=== PATIENT | female | born 1940 | race Hispanic/Latino ===

== ENCOUNTER 2016-12-04 12:49 | Outpatient (CLI) | payer MEDICARE, BC ==
--- NOTE | 2016-12-04 15:02 | CT ---
CT BRAIN WITHOUT CONTRAST: Comparison: 04-11-14 History: Visual disturbance. Technique: Multiple contiguous axial images were obtained in a CT of the brain without contrast. FINDINGS: There are scattered hypodensities in the subcortical and periventricular white matter, likely second walker to small vessel ischemic disease. No large confluent infarction is seen. There is no evidence of hydrocephalus, intracranial hemorrhage, or extraaxial fluid collections. The calvarium and overlying soft tissues are unremarkable. The visualized paranasal sinuses and mast oid air cells are well aerated. IMPRESSION: Small vessel ischemic disease without acute intracranial abnormality. POS: [facility]
== END 2016-12-04 12:50 | disposition home or self-care (01) ==
LOC: CT 12:49
PROVIDERS: ATTEND Specialist
DX: R51 Headache (principal); H53.8 Other visual disturbances; G93.89 Other specified disorders of brain
CPT/HCPCS: 70450

== ENCOUNTER 2018-02-01 10:00 | Emergency (ER) | payer MEDICARE, BC ==
[2018-02-01] MEDS ORDERED: Iopamidol 370 76% 100 ML VIAL ONE (10:27)
[2018-02-01 10:39] LABS: #Basophils 0.1 thou/uL (0.0-0.2); #Eosinphils 0.4 thou/uL (0.0-0.7); #Lymphocytes 4.3 thou/uL (1.20-3.40); #Monocytes 0.9 thou/uL (0.11-0.59); #Neutrophils 5.7 thou/uL (1.40-6.50); %Basophils 0.9 % (0.0-1.0); %Eosinophils 3.6 % (0.0-10.0); %Lymphocytes 38.1 % (21.0-51.0); %Monocytes 7.6 % (0.0-10.0); %Neutrophils 49.8 % (42.0-75.0); Hemoglobin 12.7 g/dL (12.0-16.0); Mean Corpuscular HGB CONC 33.1 g/dL (32.0-36.0); Mean Corpuscular Hemoglobin 31.4 pg (27.0-31.0); Mean Corpuscular Volume 94.9 fL (78.0-98.0); Mean Platelet Volume 7.5 fL (7.4-10.4); Platelet Count 299 thou/uL (130-400); RBC Distribution Width 13.3 % (11.5-14.5); Red Blood Cell (RBC) Count 4.05 mill/uL (4.20-5.40); White Blood Cell (WBC) Count 11.4 thou/uL (4.8-10.8)
[2018-02-01 10:43] LABS: Bilirubin Negative (Negative); Blood, Urine Moderate (Negative); Clarity TURBID (Clear); Glucose, Urine (Dipstick) >=1000 mg/dL (Negative); Leukocyte Large (Negative); Nitrite Negative (Negative); Protein, Urine (Dipstick) Trace mg/dL (Neg-Trace); Specific Gravity, Urine 1.019 (1.002-1.036)
--- NOTE | 2018-02-01 10:45 | RAD ---
CHEST 1 VIEW: HISTORY: Chest pain. COMPARISON: Radiograph 08/15/2016. FINDINGS: Heart size is mildly enlarged. Mild edema. NO pneumothorax. Small right effusion. IMPRESSION: Cardiomegaly, mild edema, and small right effusion. POS: [facility]
[2018-02-01 10:49] LABS: Bacteria/HPF 4+ HPF (None Seen); Yeast-AUWi Flag 8.5 (0-25.0)
[2018-02-01 10:52] LABS: Pathc Cast-AUWi Flag 13.92 (0-2.49)
[2018-02-01 11:01] LABS: Hyaline Casts/LPF 0-3 HYALINE CAST LPF (0-3 Hyaline); Manual Microscopic Reviewed? No Path Casts Seen
[2018-02-01 11:03] LABS: ALT (SGPT) 9 U/L (8-55); AST (SGOT) 16 U/L (5-34); Albumin 4.3 g/dL (3.4-4.8); Alkaline Phosphatase 106 U/L (40-150); Anion Gap 19 mmol/L (10-20); BUN (Urea Nitrogen) 17 mg/dL (9.8-20.1); Bilirubin, Total 0.3 mg/dL (0.2-1.2); CK (CPK) 39 U/L (29-168); Calc. Creatinine Clearance 0 mL/min (70-130); Carbon Dioxide 21 mmol/L (23-31); Chloride 101 mmol/L (98-107); Estimated GFR-MDRD 61; Globulin 3.9 g/dL (2.4-3.5); Glucose 217 mg/dL (83-110); Potassium 4.4 mmol/L (3.5-5.1); Protein, Total 8.2 g/dL (6.0-8.3); Sodium 137 mmol/L (136-145)
[2018-02-01 11:07] LABS: CKMB 0.5 ng/mL (0-6.6); Troponin I Less than 0.010 ng/mL (< 0.028)
--- NOTE | 2018-02-01 12:01 | CT ---
CT ANGIOGRAM CHEST WITH CONTRAST: HISTORY: Chest pain. COMPARISON: Radiograph of same day. FINDINGS: CT angiogram chest performed after the intravenous administration of contrast. Three-D rendering was provided. The exam is limited due to the delayed phase of contrast. No proximal segmental pulmonary arterial f illing defect. Heart size is enlarged. Pulmonary trunk size measures 28 mm. No mediastinal adenopathy. There is mild pulmonary edema. Trace right pleural effusion. Bronchiectasis is present also in the left lower lobe with some mucus filling the left lower lobe bro nchi. The sternum and manubrium are intact. No acute thoracic spine fracture. There is no acute displaced rib fracture. IMPRESSION: 1. No proximal segmental pulmonary arterial filling defect. 2. Cardiomegaly and mild pulmonary edema. 3. Trace right effusion. POS: [facility]
== END 2018-02-01 14:24 | disposition home or self-care (01) ==
LOC: ERS 10:00
DX: R07.89 Other chest pain (principal); N39.0 Urinary tract infection, site not specified; I10 Essential (primary) hypertension; E66.9 Obesity, unspecified; E11.319 Type 2 diabetes mellitus with unspecified diabetic retinopathy without macular edema; E78.00 Pure hypercholesterolemia, unspecified; K21.9 Gastro-esophageal reflux disease without esophagitis; F32.9 Major depressive disorder, single episode, unspecified; Z79.899 Other long term (current) drug therapy
CPT/HCPCS: 36415; 51701; 71045; 71275; 80053; 81003; 81015; 82553; 83880; 84484; 85025; 87040; 87086; 93005; 94760; 96365; A4353; J1956

== ENCOUNTER 2018-10-22 21:10 | Inpatient (IN) | payer MEDICARE, BC, MEDICAID ==
[2018-10-22 21:54] LABS: #Basophils 0.1 thou/uL (0.0-0.2); #Eosinphils 0.5 thou/uL (0.0-0.7); #Lymphocytes 2.1 thou/uL (1.20-3.40); #Neutrophils 4.3 thou/uL (1.40-6.50); %Basophils 0.8 % (0.0-1.0); %Eosinophils 5.8 % (0.0-10.0); %Lymphocytes 26.8 % (21.0-51.0); %Monocytes 12.2 % (0.0-10.0); %Neutrophils 54.4 % (42.0-75.0); Hemoglobin 11.8 g/dL (12.0-16.0); Mean Corpuscular Hemoglobin 31.8 pg (27.0-31.0); Mean Corpuscular Volume 96.3 fL (78.0-98.0); Mean Platelet Volume 7.5 fL (7.4-10.4); Platelet Count 255 thou/uL (130-400); RBC Distribution Width 13.1 % (11.5-14.5); Red Blood Cell (RBC) Count 3.72 mill/uL (4.20-5.40)
--- NOTE | 2018-10-22 21:56 | RAD ---
XR Chest 1 View Portable HISTORY: Altered mental status. COMPARISON: 02/01/2018 exam. FINDINGS: Heart size is enlarged with chronic appearing lung changes seen. No focal infiltrates or si gns of failure. IMPRESSION: Cardiomegaly with chronic appearing lung change. Stable chest.
[2018-10-22] MEDS ORDERED: Vancomycin HCl 1 GM in Premix Bag 1 BAG IVPB SCH (22:00)
[2018-10-22] MEDS ORDERED: MEROPENEM 1 GM/50 ML 1 GM in Premix Bag 1 BAG IVPB SCH (22:15)
[2018-10-22 22:16] LABS: ALT (SGPT) 22 U/L (8-55); AST (SGOT) 31 U/L (5-34); Albumin 3.8 g/dL (3.4-4.8); Alkaline Phosphatase 131 U/L (40-150); Anion Gap 17 mmol/L (10-20); BUN (Urea Nitrogen) 40 mg/dL (9.8-20.1); Bilirubin, Total 0.3 mg/dL (0.2-1.2); Calc. Creatinine Clearance 0 mL/min (70-130); Calcium 9.4 mg/dL (7.8-10.44); Carbon Dioxide 22 mmol/L (23-31); Chloride 98 mmol/L (98-107); Estimated GFR-MDRD 15; Globulin 3.6 g/dL (2.4-3.5); Glucose 96 mg/dL (83-110); Protein, Total 7.4 g/dL (6.0-8.3); Sodium 133 mmol/L (136-145)
[2018-10-22] MEDS ORDERED: Norepinephrine 4 MG/4 ML VIAL ONE (22:31)
[2018-10-22] MEDS ORDERED: Dextrose 50% Abboject 50 ML SYRINGE ONE (22:31)
[2018-10-22] MEDS ORDERED: Norepinephrine 8 MG in Dextrose 5% in Water 242 ML IVPB PRN (22:36)
--- NOTE | 2018-10-22 23:31 | RAD ---
Portable chest: HISTORY: Central line placement. COMPARISON: Earlier exam of the same day. A left-sided central line is been placed. Catheter tip overlies the superior vena cava. There is no s igns of pneumothorax. No other interval change is noted. IMPRESSION: Placement of a central line, the catheter tip overlies the superior vena cava. No signs o f pneumothorax.
[2018-10-23 00:09] LABS: Bacteria/HPF 4+ HPF (None Seen); Bilirubin Negative (Negative); Blood, Urine 1+ (Negative); Clarity Extra Turbid (Clear); Glucose, Urine (Dipstick) 300 mg/dL (Negative); Leukocyte 500 Leu/uL (Negative); Nitrite Negative (Negative); Protein, Urine (Dipstick) 100 mg/dL (Neg-Trace); Squamous Epithelial 21-50 HPF (0-3); Urobilinogen Normal mg/dL (Less than 2); WBC/HPF Greater than 50 HPF (0-3)
[2018-10-23] MEDS ORDERED: Dextrose 10% in Water 1,000 ML IV SCH (01:30)
[2018-10-23 01:48] VITALS: BMI 33.5
[2018-10-23 01:52] LABS: Lactic Acid 3.1 mmol/L (0.5-2.2)
[2018-10-23] MEDS ORDERED: hydrALAZINE 20 MG/ML VIAL SLOW IVP PRN (02:37)
[2018-10-23] MEDS ORDERED: Sodium Chloride 0.9% 1,000 ML IV SCH (02:37)
[2018-10-23] MEDS ORDERED: Dextrose 50% Abboject 50 ML SYRINGE SLOW IVP PRN (02:37)
[2018-10-23] MEDS ORDERED: Acetaminophen 500 MG TAB PO PRN (02:37)
[2018-10-23] MEDS ORDERED: HumaLOG 300 UNITS/3 ML VIAL SC PRN ×2 (02:37)
[2018-10-23] MEDS ORDERED: Dextrose 5% in Water 1,000 ML IV PRN (02:37)
[2018-10-23] MEDS ORDERED: Norepinephrine 8 MG/0.9% NS 250 ML IVPB SCH (02:37)
[2018-10-23] MEDS ORDERED: Ondansetron PF 4 MG/2 ML Vial IVP PRN (02:37)
[2018-10-23] MEDS ORDERED: Ondansetron ODT 4 MG TAB PO PRN (02:37)
[2018-10-23] MEDS ORDERED: Norepinephrine 8 MG in Dextrose 5% in Water 242 ML IVPB SCH (03:00)
[2018-10-23] MEDS: cefTRIAXone\\ROCEPHIN 2 GM in Sodium Chloride 0.9% 100 ML IVPB SCH (03:48)
[2018-10-23 04:54] LABS: Band 11 % (5-11); Eosinophils 3 % (0-10); Hemoglobin 11.2 g/dL (12.0-16.0); Lymphocytes 23 % (21-51); MDiff Complete? YES; Mean Corpuscular HGB CONC 33.5 g/dL (32.0-36.0); Mean Corpuscular Volume 95.5 fL (78.0-98.0); Mean Platelet Volume 7.2 fL (7.4-10.4); Monocytes 8 % (0-10); Neutrophil 55 % (42-75); Platelet Count 255 thou/uL (130-400); Red Blood Cell (RBC) Count 3.51 mill/uL (4.20-5.40); White Blood Cell (WBC) Count 8.2 thou/uL (4.8-10.8)
[2018-10-23 05:00] LABS: Anion Gap 14 mmol/L (10-20); BUN (Urea Nitrogen) 35 mg/dL (9.8-20.1); Calc. Creatinine Clearance 27 mL/min (70-130); Calcium 8.6 mg/dL (7.8-10.44); Carbon Dioxide 22 mmol/L (23-31); Chloride 101 mmol/L (98-107); Estimated GFR-MDRD 22; Glucose 176 mg/dL (83-110); Potassium 3.9 mmol/L (3.5-5.1); Sodium 133 mmol/L (136-145)
[2018-10-23] MEDS ORDERED: Vancomycin HCl 1 GM in Sodium Chloride 0.9% 250 ML 250 ML IVPB SCH (09:00)
--- NOTE | 2018-10-23 09:09 | HP ---
PRIMARY CARE PROVIDER: Dr. Lyle Sands. CHIEF COMPLAINT: Hypoglycemia and altered mental status. HISTORY OF PRESENT ILLNESS: This is a 78-year-old female, who is a current resident at [facility] where the patient was discovered with altered mental status and unresponsive by [facility] staff. Initial glucose was noted 34 at which point patient received glucose at the [facility]. The patient with longstanding history of diabetes mellitus type 2, on oral hypoglycemics including glyburide/metformin and Januvia. The patient apparently had been recently treated for suspected urinary tract infection with antibiotic therapy over the last 5-7 days prior to this evaluation. In the emergency room, the patient underwent general evaluation, receiving IV vancomycin and meropenem in addition to initiation of vasopressors with Levophed. The patient also received D50 IV push with 10% dextrose. PAST MEDICAL HISTORY: 1. Hypertension. 2. Diabetes mellitus type 2. 3. Morbid obesity. 4. Recurrent cystitis. 5. Distal right femur fracture. PAST SURGICAL HISTORY: 1. Status post hysterectomy. 2. Status post cholecystectomy. 3. Status post open reduction and internal fixation right femur fracture. CURRENT MEDICATIONS: 1. Invokana 300 mg p.o. daily. 2. Abilify 10 mg p.o. daily. 3. Claritin 5 mg p.o. daily. 4. Januvia 100 mg p.o. daily. 5. Zocor 10 mg p.o. at bedtime. 6. Wellbutrin XL 1 tablet p.o. daily. 7. Protonix 40 mg p.o. daily. 8. Tylenol 325 mg 2 tablets p.o. q.6 hours p.r.n. 9. Lasix 20 mg p.o. daily. 10. Gabapentin 300 mg p.o. daily. 11. NovoLog 70/30, 42 units subcutaneously. 12. Tramadol 50 mg p.o. q.6 hours p.r.n. pain. ALLERGIES: TO CLARITHROMYCIN, PENICILLIN. FAMILY HISTORY: Positive for diabetes mellitus type 2 and hypertension. SOCIAL HISTORY: Current resident of [facility]. Resides in [place], [place] previously. No alcohol, tobacco, or illicit drug use. Quit smoking greater than 20 years prior to this evaluation. REVIEW OF SYSTEMS: GENERAL: Unobtainable due to patient's altered mental status and poor historian. VITAL SIGNS: On admission, blood pressure 75/45, pulse 75, respiratory rate 18, temperature 97.8 degrees Fahrenheit, O2 saturation is 98% on room air. GENERAL APPEARANCE: This is a 78-year-old female, lying on the hospital bed, sleeping, arouses to name in no acute distress. HEENT: Pupils are equal, round, reactive to light and accommodation. Extraocular muscles are intact. No scleral icterus. No conjunctival injection. Nares are patent. OP is clear. NECK: Supple. No cervical adenopathy. No thyromegaly. No carotid bruits. No JVD appreciated. Cervical spine with full active and passive range of motion. No meningeal signs noted. CHEST: Diminished breath sounds in the bases bilaterally. CARDIOVASCULAR: S1 and S2 without noted murmur, rub, or gallop. ABDOMEN: Rounded, soft, nontender, and nondistended. Bowel sounds are positive in all 4 quadrants. There is no hepatosplenomegaly. No abdominal bruits, no rebound or guarding appreciated. EXTREMITIES: Warm and dry with fair turgor. No clubbing, cyanosis, or asymmetric edema appreciated. Pulses palpable distally at the dorsalis pedis, posterior tibial, and popliteal arteries bilaterally. Capillary refill less than 2 seconds. NEUROLOGIC: Somnolent and lethargic throughout the exam. Does not follow commands. Rest of the cranial nerves 2 through 12 are grossly intact. PERTINENT LAB AND X-RAY FINDINGS: Sodium 133, potassium 4.0, chloride 98, CO2 of 22, BUN 40, creatinine 3.09. Lactic acid level 2.6. Glucose ranged between 41 to 103. LFTs within normal limits. CBC showed a white blood cell count of 8.0, hemoglobin 12, hematocrit 36, platelet count 255 with normal differential. Urinalysis positive for protein, blood and leukocyte esterase positive, 11 to 20 rbc's per high-power field and greater than 50 to [id number]-count wbc's per high-power field. 4+ bacteria noted. Portable chest x-ray dated 10/22/2018, no acute cardiopulmonary process noted. Telemetry monitoring shows a sinus rhythm with heart rates in the 80s to the low 90s. ASSESSMENT/PLAN: 1. Sepsis with shock. The patient will be admitted to Critical Care Unit. We will continue IV antibiotic therapy, empirically treating, suspected urinary tract infection. Continue Rocephin 2 g IV q.24 hours with additional vancomycin 1 g IV q.12 hours. Await final urine and blood culture results. 2. Acute kidney injury, suspect multifactorial. Continue intravenous normal saline and monitor clinical response. 3. Hypoglycemia. Suspect iatrogenic in conjunction with #1. Continue D10 infusion and monitor serial creatinine. 4. Hypotension, suspect secondary to #1. Continue vasopressor support and monitor serial blood pressures. 5. Diabetes mellitus type 2. Hold all oral hypoglycemics and monitor serial glucose. 6. Prophylaxis. SCDs while in bed. Pepcid 20 mg IV b.i.d. PT and OT evaluation for functional assessment. CODE STATUS: Full. Surrogate medical decision maker is patient's daughter. Job ID: [id number]
[2018-10-23] MEDS ORDERED: Dextrose 5 % And 0.9 % NaCl 1,000 ML IV SCH (11:45)
[2018-10-23] MEDS: Sodium Chloride 0.9% 1,000 ML IV SCH ×2 (14:00→19:13)
--- NOTE | 2018-10-23 16:05 | PDOC.HOSPP ---
- Subjective Encounter Date: 10/23/18 Encounter Time: 10:00 Subjective: Ms. Ferrer was seen today in follow-up of UTI with sepsis. She does not have any complaints. She says she is feeling much better. - Objective Vital Signs & Weight: Vital Signs (12 hours) Temp Pulse BP Pulse Ox Pulse Ox 10/23/18 11:00 98.7 F 10/23/18 07:56 83 101/48 L 99 10/23/18 07:33 97 10/23/18 07:00 98.3 F Weight Admit Weight 171 lb 11.841 oz Weight 171 lb 11.841 oz Most Recent Monitor Data Heart Rate from ECG 79 NIBP 96/55 NIBP BP-Mean 68 Respiration from ECG 19 SpO2 97 I&O: 10/22/18 10/23/18 10/24/18 06:59 06:59 06:59 Intake Total 523 1698 Output Total 1300 1999 Balance -777 -302 Result Diagrams: 10/23/18 04:00 10/23/18 04:00 Additional Labs: Accuchecks 10/23/18 10/23/18 10/23/18 15:55 12:39 10:38 POC Glucose 302 H 225 H 192 H 10/23/18 10/23/18 10/23/18 08:20 06:10 04:07 POC Glucose 192 H 154 H 171 H 10/22/18 10/22/18 10/22/18 23:47 22:38 22:03 POC Glucose 164 H 41 L* 60 L 10/22/18 21:17 POC Glucose 103 ROS - Medication Medications: Active Medications Generic Name Dose Route Start Last Admin Trade Name Freq PRN Reason Stop Dose Admin Ceftriaxone Sodium 2 gm/ 100 mls @ 200 mls/hr 10/23/18 03:00 10/23/18 03:48 Sodium Chloride IVPB 100 mls Q24HR BRIANNE Administration Sodium Chloride 1,000 mls @ 0 mls/hr 10/23/18 02:37 10/23/18 12:18 Normal Saline 0.9% IV 10/24/18 02:38 1,000 mls .Q0M BRIANNE Administration As Directed Dextrose/Sodium Chloride 1,000 mls @ 50 mls/hr 10/23/18 11:45 10/23/18 12:20 D5 0.9% Ns IV 1,000 mls .Q20H BRIANNE Administration Sodium Chloride 1,000 mls @ 125 mls/hr 10/23/18 11:45 10/23/18 14:00 Normal Saline 0.9% IV 1,000 mls .Q8H BRIANNE Administration - Exam Eye: PERRL, anicteric sclera Heart: RRR, no murmur, no gallops, no rubs, normal peripheral pulses Respiratory: CTAB, no wheezes, no rales, no ronchi, normal chest expansion, no tachypnea, normal percussion Gastrointestinal: soft, non-tender, non-distended, normal bowel sounds, no palpable masses, no hepatomegaly, no splenomegaly Extremities: no cyanosis, no clubbing, no edema Hosp A/P (1) Sepsis Code(s): A41.9 - SEPSIS, UNSPECIFIED ORGANISM Status: Acute (2) UTI (urinary tract infection) Status: Acute Qualifiers: Hematuria presence: without hematuria (3) DM2 (diabetes mellitus, type 2) Status: Chronic Qualifiers: Diabetes mellitus complication status: without complication Qualified Code( s): E11.9 - Type 2 diabetes mellitus without complications (4) HTN (hypertension) Code(s): I10 - ESSENTIAL (PRIMARY) HYPERTENSION Status: Chronic Qualifiers: Hypertension type: essential hypertension Qualified Code(s): I10 - Essential (primary) hypertension (5) Septic shock Code(s): A41.9 - SEPSIS, UNSPECIFIED ORGANISM; R65.21 - SEVERE SEPSIS WITH SEPTIC SHOCK Status: Acute - Plan * UTI with septic shock- she has been weaned off pressors, and can begin to gissel IV fluids * Continue Rocephin * DM- her blood glucose is beginning to creep up- will discontinue D5NS * She can eb transferred out of the ICU * She is typically wheeclchair bound at the nursing facility, and anticipate return when she is clinically improved
[2018-10-23] MEDS ORDERED: Guaifenesin DM 100-10/5 ML UDCUP PO SCH (20:00)
[2018-10-23] MEDS ORDERED: Vancomycin HCl 1 GM in Premix Bag 1 BAG IVPB SCH (23:00)
[2018-10-24] MEDS: cefTRIAXone\\ROCEPHIN 2 GM in Sodium Chloride 0.9% 100 ML IVPB SCH (02:40)
[2018-10-24] MEDS: Sodium Chloride 0.9% 1,000 ML IV SCH (02:42)
[2018-10-24 05:37] LABS: Anion Gap 12 mmol/L (10-20); BUN (Urea Nitrogen) 16 mg/dL (9.8-20.1); Calc. Creatinine Clearance 77 mL/min (70-130); Calcium 8.6 mg/dL (7.8-10.44); Carbon Dioxide 23 mmol/L (23-31); Chloride 111 mmol/L (98-107); Estimated GFR-MDRD 75; Glucose 136 mg/dL (83-110); Potassium 3.5 mmol/L (3.5-5.1); Sodium 142 mmol/L (136-145)
--- NOTE | 2018-10-24 07:49 | PDOC.HOSPP ---
- Subjective Encounter Date: 10/24/18 Encounter Time: 07:46 Subjective: Ms. Ferrer was seen today in follow-up of UTI and sepsis. She does not have any complaints today. She appears comfortable. - Objective Vital Signs & Weight: Vital Signs (12 hours) Temp Pulse Resp BP Pulse Ox 10/24/18 04:39 98.5 F 84 16 134/68 95 10/24/18 00:20 98.3 F 81 16 127/62 98 10/23/18 19:58 97.9 F 86 16 125/58 L 93 L Weight Admit Weight 171 lb 11.841 oz Weight 171 lb 11.841 oz Most Recent Monitor Data Heart Rate from ECG 80 NIBP 96/55 NIBP BP-Mean 68 Respiration from ECG 20 SpO2 98 I&O: 10/23/18 10/24/18 10/25/18 06:59 06:59 06:59 Intake Total 523 3589 Output Total 1300 3500 Balance -777 89 Result Diagrams: 10/23/18 04:00 10/24/18 03:30 Additional Labs: Accuchecks 10/23/18 10/23/18 10/23/18 20:11 15:55 12:39 POC Glucose 223 H 302 H 225 H 10/23/18 10/23/18 10:38 08:20 POC Glucose 192 H 192 H ROS - Medication Medications: Active Medications Generic Name Dose Route Start Last Admin Trade Name Freq PRN Reason Stop Dose Admin Ceftriaxone Sodium 2 gm/ 100 mls @ 200 mls/hr 10/23/18 03:00 10/24/18 02:40 Sodium Chloride IVPB 100 mls Q24HR BRIANNE Administration - Exam Eye: PERRL, anicteric sclera Heart: RRR, no murmur, no gallops, no rubs, normal peripheral pulses Respiratory: CTAB, no wheezes, no rales, no ronchi, normal chest expansion, no tachypnea, normal percussion Gastrointestinal: soft, non-tender, non-distended, normal bowel sounds, no palpable masses, no hepatomegaly, no splenomegaly Extremities: no cyanosis, no clubbing, no edema Hosp A/P (1) Sepsis Code(s): A41.9 - SEPSIS, UNSPECIFIED ORGANISM Status: Acute (2) UTI (urinary tract infection) Status: Acute Qualifiers: Hematuria presence: without hematuria (3) DM2 (diabetes mellitus, type 2) Status: Chronic Qualifiers: Diabetes mellitus complication status: without complication Qualified Code( s): E11.9 - Type 2 diabetes mellitus without complications (4) HTN (hypertension) Code(s): I10 - ESSENTIAL (PRIMARY) HYPERTENSION Status: Chronic Qualifiers: Hypertension type: essential hypertension Qualified Code(s): I10 - Essential (primary) hypertension (5) Septic shock Code(s): A41.9 - SEPSIS, UNSPECIFIED ORGANISM; R65.21 - SEVERE SEPSIS WITH SEPTIC SHOCK Status: Acute - Plan * UTI with septic shock- this is much improved. Urine culture results are pending * Continue Rocephin * DM- will re-start some of her home medications for DM- but will hold off on insulin * HTN- blood pressure is stable- will continue to hold her MARIO-I today, likely re-start tomorrow * Likely back to the [facility] in 1-2 days
[2018-10-24] MEDS: Bupropion 150 MG XL TAB PO SCH (08:43)
[2018-10-24] MEDS: metFORMIN 500 MG TAB PO SCH ×2 (08:43→17:00)
[2018-10-24] MEDS: Gabapentin 300 MG CAP PO SCH ×3 (08:43→20:17)
[2018-10-24] MEDS: traMADol HCl 50 MG TAB PO SCH ×2 (08:43→20:17)
[2018-10-24] MEDS: Alogliptin 6.25 MG TAB PO SCH ×2 (08:44→17:00)
[2018-10-24] MEDS ORDERED: Guaifenesin DM 100-10/5 ML UDCUP PO PRN (08:45)
[2018-10-24] MEDS ORDERED: DULoxetine 60 MG CAP PO SCH (21:00)
[2018-10-24] MEDS ORDERED: Aripiprazole 10 MG TAB PO SCH (21:00)
[2018-10-24] MEDS ORDERED: Simvastatin 5 MG TAB PO SCH (21:00)
[2018-10-25] MEDS: cefTRIAXone\\ROCEPHIN 2 GM in Sodium Chloride 0.9% 100 ML IVPB SCH (03:12)
[2018-10-25] MEDS: Bupropion 150 MG XL TAB PO SCH (08:42)
[2018-10-25] MEDS: traMADol HCl 50 MG TAB PO SCH (08:43)
[2018-10-25] MEDS: Gabapentin 300 MG CAP PO SCH ×2 (08:43→16:59)
[2018-10-25] MEDS: metFORMIN 500 MG TAB PO SCH ×2 (08:43→16:59)
[2018-10-25] MEDS: Alogliptin 6.25 MG TAB PO SCH ×2 (08:44→16:59)
[2018-10-25 08:49] VITALS: BP 130/59; TEMP 97.9
--- NOTE | 2018-10-25 13:37 | PDOC.HOSPP ---
- Subjective Encounter Date: 10/25/18 Encounter Time: 13:34 Subjective: Ms. Ferrer was seen today in follow-up of UTI with sepsis. She appears at her baseline. She does not have any complaints. - Objective Vital Signs & Weight: Vital Signs (12 hours) Temp Pulse Resp BP Pulse Ox 10/25/18 08:00 97.9 F 89 16 130/59 L 95 Weight Admit Weight 171 lb 11.841 oz Weight 171 lb 11.841 oz Most Recent Monitor Data Heart Rate from ECG 80 NIBP 96/55 NIBP BP-Mean 68 Respiration from ECG 20 SpO2 98 I&O: 10/24/18 10/25/18 10/26/18 06:59 06:59 06:59 Intake Total 3589 Output Total 3500 Balance 89 Result Diagrams: 10/23/18 04:00 10/24/18 03:30 Additional Labs: Accuchecks 10/25/18 10/25/18 10/24/18 11:06 06:40 20:45 POC Glucose 207 H 157 H 142 H 10/24/18 16:32 POC Glucose 147 H ROS - Medication Medications: Active Medications Generic Name Dose Route Start Last Admin Trade Name Freq PRN Reason Stop Dose Admin Acetaminophen 1,000 mg 10/23/18 02:37 10/25/18 08:45 Tylenol PO 1,000 mg Q6H PRN Administration Mild Pain (1-3) Alogliptin Benzoate 12.5 mg 10/24/18 08:00 10/25/18 08:44 Alogliptin PO 12.5 mg BID-WM BRIANNE Administration Aripiprazole 10 mg 10/24/18 21:00 10/24/18 20:20 Abilify PO 10 mg HS BRIANNE Administration Bupropion HCl 300 mg 10/24/18 09:00 10/25/18 08:42 Wellbutrin Xl PO 300 mg DAILY BRIANNE Administration Duloxetine HCl 120 mg 10/24/18 21:00 10/24/18 20:17 Cymbalta PO 120 mg HS BRIANNE Administration Gabapentin 300 mg 10/24/18 09:00 10/25/18 08:43 Neurontin PO 300 mg TID BRIANNE Administration Guaifenesin/Dextromethorphan 15 ml 10/24/18 08:45 10/24/18 09:05 Robitussin Dm PO 15 ml Q4H PRN Administration Cough Ceftriaxone Sodium 2 gm/ 100 mls @ 200 mls/hr 10/23/18 03:00 10/25/18 03:12 Sodium Chloride IVPB 100 mls Q24HR BRIANNE Administration Metformin HCl 1,000 mg 10/24/18 08:00 10/25/18 08:43 Glucophage PO 1,000 mg BID-WM BRIANNE Administration Simvastatin 10 mg 10/24/18 21:00 10/24/18 20:17 Zocor PO 10 mg HS BRIANNE Administration Tramadol HCl 50 mg 10/24/18 09:00 10/25/18 08:43 Ultram PO 50 mg BID BRIANNE Administration - Exam Eye: PERRL, anicteric sclera Heart: RRR, no murmur, no gallops, no rubs, normal peripheral pulses Respiratory: CTAB, no wheezes, no rales, no ronchi, normal chest expansion Gastrointestinal: soft, non-distended, normal bowel sounds, no palpable masses, no hepatomegaly, no splenomegaly Extremities: no cyanosis, no clubbing, no edema Hosp A/P (1) Sepsis Code(s): A41.9 - SEPSIS, UNSPECIFIED ORGANISM Status: Acute (2) UTI (urinary tract infection) Status: Acute Qualifiers: Hematuria presence: without hematuria (3) DM2 (diabetes mellitus, type 2) Status: Chronic Qualifiers: Diabetes mellitus complication status: without complication Qualified Code( s): E11.9 - Type 2 diabetes mellitus without complications (4) HTN (hypertension) Code(s): I10 - ESSENTIAL (PRIMARY) HYPERTENSION Status: Chronic Qualifiers: Hypertension type: essential hypertension Qualified Code(s): I10 - Essential (primary) hypertension (5) Septic shock Code(s): A41.9 - SEPSIS, UNSPECIFIED ORGANISM; R65.21 - SEVERE SEPSIS WITH SEPTIC SHOCK Status: Acute - Plan * UTI with septic shock- resolved * Canchange antibiotic to Omnicef * DM- stable * HTN- blood pressure is stable- re-start Lisinopril * Stable to return to half-way
--- NOTE | 2018-10-25 21:57 | DIS ---
DATE OF ADMISSION: 10/22/2018 DATE OF DISCHARGE: 10/25/2018 PRIMARY CARE PHYSICIAN: Dr. Lyle Sands. DISCHARGE DISPOSITION: Back to the [facility]. DISCHARGE DIAGNOSES: 1. Urinary tract infection with sepsis. 2. Hypoglycemia. 3. Metabolic encephalopathy secondary to hypoglycemia. 4. Obesity. 5. Diabetes mellitus. 6. Hypertension. DISCHARGE MEDICATIONS: 1. Omnicef 300 mg twice daily. 2. Tramadol 50 mg twice a day. 3. Janumet mg twice daily. 4. Simvastatin 10 mg at bedtime. 5. MiraLAX 17 g daily. 6. Protonix 40 mg daily. 7. Zofran 4 mg q.6 as needed. 8. Losartan 50 mg at bedtime. 9. Claritin 5 mg daily. 10. Insulin 70/30, 44 units in the morning, 42 in the evening. 11. Gabapentin 300 mg t.i.d. 12. Lasix 20 mg twice a day. 13. Cymbalta 120 mg at bedtime. 14. Colace 100 mg 2 tablets daily. 15. Invokana 300 mg daily. 16. Wellbutrin 300 mg daily. 17. Abilify 10 mg daily. 18. Tylenol 325 mg daily. CODE STATUS: Full code. ALLERGIES: CLARITHROMYCIN AND PENICILLIN G. HOSPITAL COURSE: Ms. Nabil Menendez is a pleasant 78-year-old female, who was admitted due to hypoglycemia and altered mental status. She was found to have a urinary tract infection as well as sepsis and septic shock. She was admitted initially to the ICU. She had to be placed on IV fluids as well as pressors. Urine culture unfortunately did not grow any organisms, but she did improve with Rocephin IV and after she was fluid resuscitated and her blood pressure stabilized, she was moved out of the ICU to the Medical [facility], where she remained stable. We were able to begin to reintroduce her medications for diabetes and also able to begin to transition her back on her blood pressure medicine. She did well again as previously stated on Rocephin. Antibiotic was switched to Omnicef and she was discharged back to the nursing facility. Job ID: [id number]
== END 2018-10-25 17:00 | DRG 871 ==
LOC: ERS 21:10 → CCU 23:25 → ONC 10-23 16:21
PROVIDERS: ADMIT Family Medicine; ATTEND Family Medicine
DX: A41.9 Sepsis, unspecified organism (principal); G93.41 Metabolic encephalopathy; R65.21 Severe sepsis with septic shock; N17.9 Acute kidney failure, unspecified; I10 Essential (primary) hypertension; E66.01 Morbid (severe) obesity due to excess calories; E11.649 Type 2 diabetes mellitus with hypoglycemia without coma; Z90.49 Acquired absence of other specified parts of digestive tract; Z90.710 Acquired absence of both cervix and uterus; Z79.899 Other long term (current) drug therapy; Z88.0 Allergy status to penicillin; Z68.33 Body mass index [BMI] 33.0-33.9, adult
CPT/HCPCS: 36415; 36416; 71045; 80048; 80053; 80202; 81003; 81015; 82533; 83605; 84484; 85007; 85025; 85027; 87040; 87086; 93005; A4353; J0696; J2185; J3370; J3490; J7070

== ENCOUNTER 2018-11-24 08:33 | Inpatient (IN) | payer MEDICARE, BC, MEDICAID ==
[2018-11-24] MEDS ORDERED: Acetaminophen 650 MG Suppository ONE (09:02)
[2018-11-24 09:07] LABS: Hemoglobin 14.1 g/dL (12.0-16.0); Mean Corpuscular HGB CONC 33.5 g/dL (32.0-36.0); Mean Corpuscular Volume 92.4 fL (78.0-98.0); Mean Platelet Volume 8.1 fL (7.4-10.4); Platelet Count 254 thou/uL (130-400); RBC Distribution Width 13.6 % (11.5-14.5); Red Blood Cell (RBC) Count 4.55 mill/uL (4.20-5.40); White Blood Cell (WBC) Count 18.6 thou/uL (4.8-10.8)
--- NOTE | 2018-11-24 09:11 | RAD ---
PORTABLE CHEST: HISTORY: Respiratory infection two weeks ago, just finished Levaquin. COMPARISON: Examination from 10/22/2018. FINDINGS: Heart size is enlarged. Perihilar and upper lobe markings appear slightly increased with slightly mo re prominent changes of the right upper lobe. All these changes appear stable as compared to the ariana or exam. IMPRESSION: Overall stable lung parenchymal changes. POS: [facility]
[2018-11-24 09:19] LABS: Bilirubin Negative (Negative); Blood, Urine Negative (Negative); Clarity Turbid (Clear); Glucose, Urine (Dipstick) Greater than 1000 mg/dL (Negative); Leukocyte 500 Leu/uL (Negative); Nitrite Negative (Negative); Protein, Urine (Dipstick) Negative (Neg-Trace); RBC/HPF 0-3 HPF (0-3); Squamous Epithelial None Seen HPF (0-3); Urobilinogen Normal mg/dL (Less than 2); WBC/HPF Greater than 50 HPF (0-3)
[2018-11-24 09:21] LABS: Bacteria/HPF 3+ HPF (None Seen)
[2018-11-24 09:25] LABS: Band 6 % (5-11); Lymphocytes 15 % (21-51); MDiff Complete? YES; Monocytes 10 % (0-10); Neutrophil 69 % (42-75); RBC Morphology Normal
[2018-11-24 09:46] LABS: ALT (SGPT) 8 U/L (8-55); AST (SGOT) 14 U/L (5-34); Albumin 4.2 g/dL (3.4-4.8); Alkaline Phosphatase 98 U/L (40-150); Anion Gap 16 mmol/L (10-20); BUN (Urea Nitrogen) 16 mg/dL (9.8-20.1); Bilirubin, Total 0.6 mg/dL (0.2-1.2); Calc. Creatinine Clearance 0 mL/min (70-130); Calcium 9.4 mg/dL (7.8-10.44); Carbon Dioxide 25 mmol/L (23-31); Chloride 101 mmol/L (98-107); Estimated GFR-MDRD 62; Globulin 3.2 g/dL (2.4-3.5); Glucose 185 mg/dL (83-110); Lipase 12 U/L (8-78); Potassium 3.8 mmol/L (3.5-5.1); Protein, Total 7.4 g/dL (6.0-8.3); Sodium 138 mmol/L (136-145)
[2018-11-24] MEDS ORDERED: cefTRIAXone\\ROCEPHIN 1 GM VIAL ONE (10:02)
[2018-11-24] MEDS ORDERED: Acetaminophen 325 MG TAB PO PRN (12:10)
[2018-11-24] MEDS ORDERED: Ondansetron ODT 4 MG TAB SL PRN (12:10)
[2018-11-24] MEDS ORDERED: Ondansetron PF 4 MG/2 ML Vial IVP PRN (12:10)
[2018-11-24] MEDS ORDERED: Dextrose 50% Abboject 50 ML SYRINGE SLOW IVP PRN (13:16)
[2018-11-24] MEDS ORDERED: HumaLOG 300 UNITS/3 ML VIAL SC PRN (13:16)
[2018-11-24] MEDS ORDERED: Dextrose 5% in Water 1,000 ML IV PRN (13:16)
[2018-11-24] MEDS ORDERED: Norepinephrine 8 MG in Dextrose 5% in Water 242 ML IVPB PRN (13:24)
[2018-11-24] MEDS ORDERED: Norepinephrine 8 MG/0.9% NS 250 ML IVPB SCH (13:30)
[2018-11-24 13:31] VITALS: BMI 31.1
[2018-11-24] MEDS ORDERED: Meropenem 1 GM in Sodium Chloride 0.9% 100 ML IVPB SCH (14:00)
[2018-11-24] MEDS ORDERED: Sodium Chloride 0.9% 1,000 ML IV SCH (14:45)
[2018-11-24] MEDS ORDERED: Albumin 25% 25 GM/100 ML BOT IVPB SCH (14:45)
[2018-11-24] MEDS: Sodium Chloride 0.9% 1,000 ML IV SCH (14:57)
[2018-11-24] MEDS: MEROPENEM 1 GM/50 ML 1 GM in Premix Bag 1 BAG IVPB SCH ×2 (14:58→23:10)
[2018-11-24] MEDS: HumuLIN 70/30 (300 UNITS/3 ML VIAL) SC SCH (16:16)
--- NOTE | 2018-11-24 16:37 | HP ---
PRIMARY CARE PHYSICIAN: Lyle Sands MD CHIEF COMPLAINT/REASON FOR ADMISSION: The patient transferred to the emergency department from [facility] due to alteration in mental status. HISTORY OF PRESENT ILLNESS: Ms. Ferrer is a 78-year-old female, familiar to this facility from recent admission 10/22/2018 through 10/25/2018, at that time, diagnosed with urinary tract infection with consequent sepsis, requiring central line placement and pressor support, manifesting with clinical evidence of hypoglycemia and metabolic encephalopathy. At baseline, medical comorbidities include essential hypertension, type 2 diabetes, morbid obesity, previous history of recurrent cystitis, and previous history of distal right femur fracture. Additionally, the patient has a history of chronic constipation, anxiety disorder, and dyslipidemia. She presents on this occasion after becoming confused, worsened compared to baseline, with evidence of fever. She was also noted to have oxygen saturation of 89% on room air per EMS transition report. Her daughter had noted some of her mom's speech content was off relative to baseline, and endorsed confusion. Of note, upon ER presentation, temperature 101.8 rectally. Noted to have tachycardia with a pulse of 111. Clinically, felt to be hypovolemic, received IV fluid bolus x2 in the emergency department. Evaluation subsequently revealed evidence of recurrent urinary infection, request made for admission for antibiotic therapy and additional fluids. The patient's surrogate medical decision maker is her daughter, who is present at the bedside. We discussed her mother's care, also discussed code status, confirmed wish for do not resuscitate. This has been added to her chart. They are open to pursuing central line placement and pressor support if needed. Per daughter, the patient did recognize them in the ER, seemed to perk up with IV fluids, and even eat a mechanical soft lunch, which is her baseline diet. However, after transfer to the medical floor, noted to have hypotension, which has been persistent despite fluids, blood pressures 70s to 80s systolic. Upon arrival to medical floor, I was notified by her bedside nurse of interval hypotension. I evaluated the patient, trial of additional fluids unsuccessful, subsequently transferred to ICU. PAST MEDICAL HISTORY: 1. Type 2 diabetes. 2. Anxiety disorder. 3. Chronic constipation. 4. Gastroesophageal reflux disease. 5. History of recurrent cystitis. 6. Morbid obesity. 7. Essential hypertension. 8. Dyslipidemia. PAST SURGICAL HISTORY: 1. Cholecystectomy. 2. Hysterectomy. 3. Open reduction and internal fixation of right femur fracture. CURRENT MEDICATIONS: Per ER/halfway notes: 1. Cymbalta 180 mg p.o. at bedtime. 2. Losartan 50 mg p.o. at bedtime. 3. Docusate 100 mg p.o. twice daily. 4. MiraLAX 17 g p.o. daily. 5. Zocor 10 mg p.o. at bedtime. 6. Wellbutrin XL 300 mg p.o. once daily. 7. Protonix 40mg p.o. once daily. 8. Lasix 20 mg p.o. twice daily. 9. Abilify 10 mg p.o. once daily. 10. Invokana 300 mg p.o. once daily. 11. Gabapentin 300 mg p.o. three times daily. 12. Tramadol 50 mg p.o. twice daily p.r.n. pain. 13. Humulin 70/30, 20 units subcutaneously twice daily. 14. Zofran oral disintegrating tablet 4 mg p.o. q.6 hours p.r.n. nausea. 15. Janumet one tablet p.o. twice daily. ALLERGIES: BACTRIM, CLARITHROMYCIN, AND PENICILLIN. EXACT REACTION IS NOT KNOWN. FAMILY HISTORY: Positive for type 2 diabetes as well as hypertension in second-degree relatives. SOCIAL HISTORY: She is a resident of [facility]. No alcohol use or illicit drug use. Formally used tobacco, discontinued over 20 years ago. REVIEW OF SYSTEMS: Review of systems is limited secondary to the patient's alteration in mental status. As reviewed with her surrogate medical decision maker and with ER staff, no significant additional history available in review of systems. PHYSICAL EXAMINATION: VITAL SIGNS: ER triage vital signs; blood pressure 113/59, heart rate 111, respiratory rate 25, temperature 101.8 rectally, and saturating 94% on room air. Blood pressure on the medical floor 77/50. GENERAL: This is a frail, elderly female, presently in Trendelenburg at the time of my evaluation on the medical floor. She has periods of somnolence, interspersed with periods of wakefulness. She is Kitt[place]-speaking and responds better in her k[place] language. Eyes are without conjunctival injection or scleral icterus. Oropharynx, mucous membranes are moist. NECK: Supple. Full range of motion. HEART: Regular rate and rhythm. LUNGS: Some transmitted upper airway noise, cough reflex noted to be somewhat weak. She has some intermittent labored breathing present. ABDOMEN: Soft, nontender, and nondistended. EXTREMITIES: Without clubbing/cyanosis/edema. NEUROLOGIC: She is able to follow commands. She is able to tell me her daughter's name as well as her son-in-law. She is not oriented to time, location, or situation; however, she does move all extremities bilaterally to command. LABORATORY/DATA REVIEW: Previous records reviewed. Lab evaluation, urinalysis abnormal with evidence of glucose, ketones, 500 leukocyte esterase, greater than 50 white blood cells, 3+ bacteria. Chemistry panel reviewed. Glucose 185, lactic acid 2.0. Troponin negative. Liver function tests unremarkable. White blood cell count elevated at 18.6, hemoglobin 14, hematocrit 42, platelet count is 254. She has 6% bands. Chest x-ray personally reviewed. Mild bilateral interstitial markings are present. These appear stable compared to her chest x-ray, from October. Mild enlargement of her heart size is present. Radiology report indicating perihilar and upper lobe markings appear slightly increased, more prominent in the right upper lobe. Those changes were felt to be similar compared to prior exam. IMPRESSION: 1. Sepsis, as evidenced by leukocytosis, temperature 101.8, pulse 111, lactic acid 2.0, present on admission, suspect recurrent urinary source versus worsened right upper lobe infiltrate with evidence of shock, with hypotension despite fluid resuscitation. 2. Type 2 diabetes, insulin dependent. 3. Alteration in mental status, secondary to underlying infection/sepsis ( compatible with metabolic encephalopathy) 4. Obesity. 5. Essential hypertension. 6. History of anxiety/depression. PLAN/RECOMMENDATIONS: 1. Pulmonary - some transmitted upper airway noise, with some reported cough/congestion, treated empirically with antibiotics to cover potential urine and pulmonary sources. Oxygen as needed to maintain saturations greater than 90%. 2. Infectious Disease - placed on empiric coverage with vancomycin and meropenem. She has a history of an allergy to penicillin. Previous hospital stay was on Rocephin, we will rotate antibiotics slightly for the possibility of interval development of resistance in the urine. Of note, urine culture on last hospitalization did not grow. 3. Endocrine - placed on insulin sliding scale coverage. The nursing facility is on 70/30, 20 units subcutaneously twice daily. For the time being, we will place on 20 units subcutaneously twice daily, but adjust should as needed. Hold Janumet, reassess. 4. DVT prophylaxis - Lovenox. 5. Cardiology - continue home simvastatin. 6. Discussed with the patient and her family the natural history of recurrent infection in the elderly. With infections become more frequent over time, typically indicates worsened deconditioning and overall performance status. Her daughter is certainly aware. I also explained that this patient has a high risk of deterioration, and thus, if not with this infection, but with subsequent infections due to her previous performance status. Code status is do not attempt resuscitation. They are open to a trial of pressors as well as placement of central line, this is familiar to them from her last hospital stay. Condition is guarded. Spiritual care consult discussed, requested. Job ID: [id number] MTDD
[2018-11-24] MEDS: Atorvastatin Calcium 10 MG TAB PO SCH (20:21)
[2018-11-24] MEDS: Aripiprazole 10 MG TAB PO SCH (20:22)
[2018-11-24] MEDS: Vancomycin HCl 1 GM in Premix Bag 1 BAG IVPB SCH (20:23)
[2018-11-24] MEDS: DULoxetine 60 MG CAP PO SCH (20:27)
[2018-11-24] MEDS ORDERED: Vancomycin HCl 1 GM in Premix Bag 1 BAG IVPB SCH (21:00)
--- NOTE | 2018-11-24 22:15 | CON ---
DATE OF CONSULTATION: 11/24/2018 HISTORY OF PRESENT ILLNESS: Ms. Nabil Menendez is a 78-year-old female who lives in a full-time care environment. She has moved to the critical care unit because of hypotension. She apparently presented from the custodial to the emergency department with hypotension. She was just hospitalized little less than a month ago. She is unable to give a history. She was nonverbal when she was admitted to the unit. PAST MEDICAL HISTORY: Remarkable for 1. Recent admission for hypoglycemia. 2. Diabetes. 3. Hypertension. 4. Recurrent cystitis. 5. History of a distal right femur fracture. 6. Status post hysterectomy. 7. Status post cholecystectomy. 8. Status post ORIF, right femur. SOCIAL HISTORY: Nonsmoker and nondrinker. MEDICATIONS: Have been reviewed. FAMILY HISTORY: Negative for lung disease in early age. REVIEW OF SYSTEMS: 10 point review of systems completed, otherwise negative. PHYSICAL EXAMINATION: GENERAL: janice Menendez is a 78-year-old female. VITAL SIGNS: She arrived in the ICU. Her blood pressure is 105 systolic. Another liter of saline has been ordered again with 25 g of salt-poor albumin. HEENT: Pupils are reactive, sclerae are anicteric. NECK: Supple. LUNGS: Clear anteriorly. HEART: Regular rhythm. ABDOMEN: Soft and nontender without guarding or masses. EXTREMITIES: Without clubbing, cyanosis, or edema. LABORATORY DATA: White count 18.6, hemoglobin 14.1, platelets 254. Sodium 138, potassium 3.8, chloride 101, bicarb 25, BUN 16, creatinine 0.89, glucose 185. Blood gas is not done. Urinalysis showed greater than 50 white blood cells per high- power field. Urine culture was pending when I called the Lab. IMPRESSION AND PLAN: Hypotension in part secondary to intravascular volume depletion. Early urinary tract sepsis is certainly a possibility as well. We will be happy to follow the other physicians caring for her, but she appears to be stabilizing. TIME SPENT: This is a 70-minute consult, 50% of time spent on the unit coordinating care. Job ID: [id number] MTDD
[2018-11-25 05:20] LABS: #Eosinphils 0.3 thou/uL (0.0-0.7); #Monocytes 0.7 thou/uL (0.11-0.59); #Neutrophils 7.3 thou/uL (1.40-6.50); %Basophils 0.2 % (0.0-1.0); %Eosinophils 2.8 % (0.0-10.0); %Lymphocytes 19.3 % (21.0-51.0); %Monocytes 7.1 % (0.0-10.0); %Neutrophils 70.7 % (42.0-75.0); Hemoglobin 11.6 g/dL (12.0-16.0); Mean Corpuscular HGB CONC 32.4 g/dL (32.0-36.0); Mean Corpuscular Hemoglobin 31.3 pg (27.0-31.0); Mean Corpuscular Volume 96.8 fL (78.0-98.0); Mean Platelet Volume 7.4 fL (7.4-10.4); Platelet Count 196 thou/uL (130-400); RBC Distribution Width 13.2 % (11.5-14.5); White Blood Cell (WBC) Count 10.3 thou/uL (4.8-10.8)
[2018-11-25 05:32] LABS: Anion Gap 11 mmol/L (10-20); BUN (Urea Nitrogen) 8 mg/dL (9.8-20.1); Calc. Creatinine Clearance 83 mL/min (70-130); Calcium 8.9 mg/dL (7.8-10.44); Carbon Dioxide 21 mmol/L (23-31); Chloride 109 mmol/L (98-107); Estimated GFR-MDRD 82; Glucose 113 mg/dL (83-110); Potassium 3.3 mmol/L (3.5-5.1); Sodium 138 mmol/L (136-145)
[2018-11-25] MEDS: Sodium Chloride 0.9% 1,000 ML IV SCH (06:18)
[2018-11-25] MEDS: MEROPENEM 1 GM/50 ML 1 GM in Premix Bag 1 BAG IVPB SCH ×3 (06:39→21:41)
[2018-11-25] MEDS: Bupropion 150 MG XL TAB PO SCH ×3 (07:44→09:32)
[2018-11-25] MEDS: Vancomycin HCl 1 GM in Premix Bag 1 BAG IVPB SCH (07:44)
[2018-11-25] MEDS: Docusate 100 MG CAP PO SCH ×3 (07:44→09:32)
[2018-11-25] MEDS: Enoxaparin Sodium 40 MG/0.4 ML SYRINGE SC SCH (07:45)
[2018-11-25] MEDS: HumuLIN 70/30 (300 UNITS/3 ML VIAL) SC SCH ×3 (07:48→16:27)
[2018-11-25] MEDS ORDERED: Prevnar 13-Val Conj/PF 0.5 ML SYRINGE IM ONE (09:00)
--- NOTE | 2018-11-25 15:28 | PRG ---
DATE OF SERVICE: 11/25/2018 SUBJECTIVE: Ms. Nabil Menendez today is much more alert. She is speaking [place]e, but not making much sense. OBJECTIVE: VITAL SIGNS: Remain stable. She is afebrile. Heart rate is 101, respiratory rate is in the teens, oximetry is 98% on room air, blood pressure 141/87. LUNGS: Clear. HEART: Regular rhythm. ABDOMEN: Soft and nontender. EXTREMITIES: Without edema. LABORATORY DATA: Urine is growing a gram-negative jayce. IMPRESSION: Cystitis and possible early urinary tract sepsis. She is clinically stable. She has been adequately hydrated. I suspect a large component of her hypotension is secondary to intravascular volume depletion. She is stable to move out of the Critical Care Unit in my opinion. Antibiotics can be de-escalated when sensitivities are back. We will sign off. Job ID: [id number]
--- NOTE | 2018-11-25 17:30 | PDOC.HOSPP ---
- Subjective Encounter Date: 11/25/18 Encounter Time: 10:15 Subjective: Ms. Nabil Menendez was seen today in follow-up of UTI with sepsis. She is confused, she notes a headache and some body aches, but otherwise ok. - Objective Vital Signs & Weight: Vital Signs (12 hours) Temp Pulse Resp BP Pulse Ox 11/25/18 16:47 98.3 F 98 18 125/80 93 L 11/25/18 11:00 98.4 F 101 H 18 141/87 H 98 11/25/18 07:06 99 11/25/18 06:58 98.9 F Weight Weight 170 lb Most Recent Monitor Data Heart Rate from ECG 99 NIBP 140/103 NIBP BP-Mean 115 Respiration from ECG 19 SpO2 97 I&O: 11/24/18 11/25/18 11/26/18 06:59 06:59 06:59 Intake Total 2727 0 Output Total 3200 950 Balance -473 -950 Result Diagrams: 11/25/18 04:48 11/25/18 04:47 Additional Labs: Accuchecks 11/25/18 11/25/18 11/25/18 16:26 11:27 06:13 POC Glucose 104 116 H 121 H 11/24/18 11/24/18 20:44 12:26 POC Glucose 60 L 186 H Hospitalist ROS - Medication Medications: Active Medications Generic Name Dose Route Start Last Admin Trade Name Freq PRN Reason Stop Dose Admin Aripiprazole 10 mg 11/24/18 21:00 11/24/18 20:22 Abilify PO 10 mg HS BRIANNE Administration Atorvastatin Calcium 5 mg 11/24/18 21:00 11/24/18 20:21 Lipitor PO 5 mg HS BRIANNE Administration Bupropion HCl 300 mg 11/25/18 09:00 11/25/18 09:32 Wellbutrin Xl PO 300 mg QAM BRIANNE Administration Dextrose/Water 25 gm 11/24/18 13:16 11/24/18 20:49 Dextrose 50% SLOW IVP 25 gm PRN PRN Administration Hypoglycemia Docusate Sodium 200 mg 11/25/18 09:00 11/25/18 09:32 Colace PO 200 mg DAILY BRIANNE Administration Duloxetine HCl 120 mg 11/24/18 21:00 11/24/18 20:27 Cymbalta PO 120 mg HS BRIANNE Administration Enoxaparin Sodium 40 mg 11/25/18 09:00 11/25/18 07:45 Lovenox SC 40 mg 0900 BRIANNE Administration Meropenem 1 gm/ Device 50 mls @ 200 mls/hr 11/24/18 14:00 11/25/18 14:56 IVPB 50 mls Q8HR BRIANNE Administration Insulin Human Isoph/Insulin Regular 20 units 11/24/18 16:30 11/25/18 16:27 Humulin 70/30 SC Not Given BID-AC BRIANNE Pantoprazole Sodium 40 mg 11/25/18 09:00 11/25/18 09:32 Protonix PO 40 mg DAILY BRIANNE Administration - Exam Eye: PERRL, anicteric sclera Heart: RRR, no murmur, no gallops, no rubs, normal peripheral pulses Respiratory: CTAB, no wheezes, no rales, no ronchi, normal chest expansion, no tachypnea, normal percussion Gastrointestinal: soft, non-tender, non-distended, normal bowel sounds, no palpable masses, no hepatomegaly, no splenomegaly, no bruit Hosp A/P (1) UTI (urinary tract infection) Status: Acute Qualifiers: Hematuria presence: without hematuria (2) Sepsis Code(s): A41.9 - SEPSIS, UNSPECIFIED ORGANISM Status: Acute (3) DM2 (diabetes mellitus, type 2) Status: Chronic Qualifiers: Diabetes mellitus complication status: without complication Qualified Code( s): E11.9 - Type 2 diabetes mellitus without complications (4) HTN (hypertension) Code(s): I10 - ESSENTIAL (PRIMARY) HYPERTENSION Status: Chronic Qualifiers: Hypertension type: essential hypertension Qualified Code(s): I10 - Essential (primary) hypertension - Plan * UTI with sepsis- she has been transitioned off the pressors * Continue Meropenem pending culture results * HTN- blood pressure is stable * DM-blood glucose is stable
[2018-11-25] MEDS: Atorvastatin Calcium 10 MG TAB PO SCH (21:40)
[2018-11-25] MEDS: Aripiprazole 10 MG TAB PO SCH (21:40)
[2018-11-25] MEDS: DULoxetine 60 MG CAP PO SCH (21:40)
[2018-11-26] MEDS: MEROPENEM 1 GM/50 ML 1 GM in Premix Bag 1 BAG IVPB SCH (06:26)
[2018-11-26] MEDS: HumuLIN 70/30 (300 UNITS/3 ML VIAL) SC SCH ×2 (08:53→17:00)
[2018-11-26] MEDS: Enoxaparin Sodium 40 MG/0.4 ML SYRINGE SC SCH (08:54)
[2018-11-26] MEDS: Docusate 100 MG CAP PO SCH (08:54)
[2018-11-26] MEDS: Bupropion 150 MG XL TAB PO SCH (08:54)
[2018-11-26] MEDS: cefTRIAXone\\ROCEPHIN 2 GM in Sodium Chloride 0.9% 100 ML IVPB SCH (09:00)
[2018-11-26 12:40] LABS: Anion Gap 18 mmol/L (10-20); BUN (Urea Nitrogen) 9 mg/dL (9.8-20.1); Calc. Creatinine Clearance 80 mL/min (70-130); Calcium 10.1 mg/dL (7.8-10.44); Carbon Dioxide 17 mmol/L (23-31); Chloride 108 mmol/L (98-107); Estimated GFR-MDRD 79; Glucose 128 mg/dL (83-110); Magnesium 2.1 mg/dL (1.6-2.6); Potassium 3.2 mmol/L (3.5-5.1); Sodium 140 mmol/L (136-145)
--- NOTE | 2018-11-26 15:41 | PDOC.HOSPP ---
- Subjective Encounter Date: 11/26/18 Encounter Time: 10:33 Subjective: 78/y/o female, [facility] resident with HTN, DM, recurrent UTI with recent septic shock due to UTI, now admitted with AMS. Found to have features of UTI associated with hypotension. Clinically improved and off pressors. Still confused. - Objective Vital Signs & Weight: Vital Signs (12 hours) Temp Pulse Resp BP BP Pulse Ox 11/26/18 09:07 94 L 11/26/18 08:17 99.0 F 98 20 123/67 92 L 11/26/18 07:25 97.7 F 97 20 142/86 H 94 L 11/26/18 04:00 98.0 F 98 16 125/79 96 Weight Weight 170 lb Most Recent Monitor Data Heart Rate from ECG 99 NIBP 140/103 NIBP BP-Mean 115 Respiration from ECG 19 SpO2 97 I&O: 11/25/18 11/26/18 11/27/18 06:59 06:59 06:59 Intake Total 2727 680 Output Total 3200 3200 Balance -473 -2520 Result Diagrams: 11/25/18 04:48 11/26/18 11:59 Additional Labs: Accuchecks 11/26/18 11/26/18 11/25/18 11:42 04:21 19:44 POC Glucose 118 H 195 H 157 H 11/25/18 16:26 POC Glucose 104 Hospitalist ROS - Medication Medications: Active Medications Generic Name Dose Route Start Last Admin Trade Name Freq PRN Reason Stop Dose Admin Aripiprazole 10 mg 11/24/18 21:00 11/25/18 21:40 Abilify PO 10 mg HS BRIANNE Administration Atorvastatin Calcium 5 mg 11/24/18 21:00 11/25/18 21:40 Lipitor PO 5 mg HS BRIANNE Administration Bupropion HCl 300 mg 11/25/18 09:00 11/26/18 08:54 Wellbutrin Xl PO 300 mg QAM BRIANNE Administration Dextrose/Water 25 gm 11/24/18 13:16 11/24/18 20:49 Dextrose 50% SLOW IVP 25 gm PRN PRN Administration Hypoglycemia Docusate Sodium 200 mg 11/25/18 09:00 11/26/18 08:54 Colace PO 200 mg DAILY BRIANNE Administration Duloxetine HCl 120 mg 11/24/18 21:00 09/18/19 21:40 Cymbalta PO 120 mg HS BRIANNE Administration Enoxaparin Sodium 40 mg 11/25/18 09:00 11/26/18 08:54 Lovenox SC 40 mg 0900 BRIANNE Administration Ceftriaxone Sodium 2 gm/ 100 mls @ 200 mls/hr 11/26/18 09:00 11/26/18 09:00 Sodium Chloride IVPB 100 mls 0900 BRIANNE Administration Insulin Human Isoph/Insulin Regular 20 units 11/24/18 16:30 11/26/18 08:53 Humulin 70/30 SC 20 unit BID-AC BRIANNE Administration Pantoprazole Sodium 40 mg 11/25/18 09:00 11/26/18 08:54 Protonix PO 40 mg DAILY BRIANNE Administration - Exam General Appearance: awake alert Eye: anicteric sclera ENT: normocephalic atraumatic Neck: supple, no JVD Heart: RRR Respiratory - other findings: 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 Hosp A/P (1) Septic shock Code(s): A41.9 - SEPSIS, UNSPECIFIED ORGANISM; R65.21 - SEVERE SEPSIS WITH SEPTIC SHOCK Status: Acute (2) Acute metabolic encephalopathy Code(s): G93.41 - METABOLIC ENCEPHALOPATHY Status: Acute (3) UTI (urinary tract infection) Status: Acute Qualifiers: Hematuria presence: without hematuria (4) Recurrent UTI Code(s): N39.0 - URINARY TRACT INFECTION, SITE NOT SPECIFIED Status: Acute (5) DM2 (diabetes mellitus, type 2) Status: Chronic Qualifiers: Diabetes mellitus complication status: without complication Qualified Code( s): E11.9 - Type 2 diabetes mellitus without complications (6) HTN (hypertension) Code(s): I10 - ESSENTIAL (PRIMARY) HYPERTENSION Status: Chronic Qualifiers: Hypertension type: essential hypertension Qualified Code(s): I10 - Essential (primary) hypertension (7) Hypokalemia Code(s): E87.6 - HYPOKALEMIA Status: Acute - Plan Substitute meropenem with rocephin in line with urine culture result. Replete serum potassium. PT eval and treat Dc ivf. Continue insulin therapy.
[2018-11-26] MEDS: Potassium Chloride 20 MEQ TAB PO SCH ×2 (16:00→20:34)
[2018-11-26] MEDS: Aripiprazole 10 MG TAB PO SCH (20:35)
[2018-11-26] MEDS: DULoxetine 60 MG CAP PO SCH (20:35)
[2018-11-26] MEDS: Atorvastatin Calcium 10 MG TAB PO SCH (20:35)
[2018-11-27 06:02] LABS: Albumin 4.2 g/dL (3.4-4.8); Anion Gap 14 mmol/L (10-20); BUN (Urea Nitrogen) 13 mg/dL (9.8-20.1); BUN/Creatinine Ratio 16.25; Calc. Creatinine Clearance 72 mL/min (70-130); Calcium 9.9 mg/dL (7.8-10.44); Carbon Dioxide 19 mmol/L (23-31); Chloride 111 mmol/L (98-107); Estimated GFR-MDRD 70; Glucose 171 mg/dL (83-110); Potassium 4.3 mmol/L (3.5-5.1); Sodium 140 mmol/L (136-145)
[2018-11-27 06:09] LABS: Phosphorus 1.6 mg/dL (2.3-4.7)
[2018-11-27] MEDS: Docusate 100 MG CAP PO SCH (08:05)
[2018-11-27] MEDS: cefTRIAXone\\ROCEPHIN 2 GM in Sodium Chloride 0.9% 100 ML IVPB SCH (08:06)
[2018-11-27] MEDS: HumuLIN 70/30 (300 UNITS/3 ML VIAL) SC SCH ×2 (08:06→16:30)
[2018-11-27] MEDS: Enoxaparin Sodium 40 MG/0.4 ML SYRINGE SC SCH (08:07)
[2018-11-27] MEDS: Bupropion 150 MG XL TAB PO SCH (09:43)
[2018-11-27] MEDS: PHOS-NAK 1 PKT PACK PO SCH ×3 (09:43→19:53)
--- NOTE | 2018-11-27 12:13 | PDOC.HOSPP ---
- Subjective Encounter Date: 11/27/18 Encounter Time: 12:11 Subjective: 78/y/o female, [facility] resident with HTN, DM, recurrent UTI with recent septic shock due to UTI, now admitted with AMS. Found to have features of UTI associated with hypotension. Clinically improved and off pressors. Markedly improved mental status. Wants to go back to her NH. - Objective Vital Signs & Weight: Vital Signs (12 hours) Temp Pulse Resp BP Pulse Ox 11/27/18 08:00 95 11/27/18 07:41 98.0 F 99 18 150/83 H 95 11/27/18 04:24 100 11/27/18 00:34 91 L Weight Weight 170 lb Most Recent Monitor Data Heart Rate from ECG 99 NIBP 140/103 NIBP BP-Mean 115 Respiration from ECG 19 SpO2 97 I&O: 11/26/18 11/27/18 11/28/18 06:59 06:59 06:59 Intake Total 680 Output Total 3200 Balance -2520 Result Diagrams: 11/25/18 04:48 11/27/18 05:24 Additional Labs: Accuchecks 11/27/18 11/27/18 11/26/18 11:40 04:24 19:14 POC Glucose 138 H 134 H 200 H 11/26/18 16:09 POC Glucose 138 H Hospitalist ROS - Medication Medications: Active Medications Generic Name Dose Route Start Last Admin Trade Name Freq PRN Reason Stop Dose Admin Aripiprazole 10 mg 11/24/18 21:00 11/26/18 20:35 Abilify PO 10 mg HS BRIANNE Administration Atorvastatin Calcium 5 mg 11/24/18 21:00 11/26/18 20:35 Lipitor PO 5 mg HS BRIANNE Administration Bupropion HCl 300 mg 11/25/18 09:00 11/27/18 09:43 Wellbutrin Xl PO 300 mg QAM BRIANNE Administration Dextrose/Water 25 gm 11/24/18 13:16 11/24/18 20:49 Dextrose 50% SLOW IVP 25 gm PRN PRN Administration Hypoglycemia Docusate Sodium 200 mg 11/25/18 09:00 11/27/18 08:05 Colace PO 200 mg DAILY BRIANNE Administration Duloxetine HCl 120 mg 11/24/18 21:00 11/26/18 20:35 Cymbalta PO 120 mg HS BRIANNE Administration Enoxaparin Sodium 40 mg 11/25/18 09:00 11/27/18 08:07 Lovenox SC 40 mg 0900 BRIANNE Administration Ceftriaxone Sodium 2 gm/ 100 mls @ 200 mls/hr 11/26/18 09:00 11/27/18 08:06 Sodium Chloride IVPB 100 mls 0900 BRIANNE Administration Insulin Human Isoph/Insulin Regular 20 units 11/24/18 16:30 11/27/18 08:06 Humulin 70/30 SC 20 unit BID-AC BRIANNE Administration Miscellaneous Medication 2 pkt 11/27/18 09:00 11/27/18 09:43 Phos-Nak PO 11/27/18 21:01 2 pkt TID BRIANNE Administration Pantoprazole Sodium 40 mg 11/25/18 09:00 11/27/18 08:05 Protonix PO 40 mg DAILY BRIANNE Administration - Exam General Appearance: awake alert Eye: anicteric sclera ENT: normocephalic atraumatic Neck: supple, symmetric Heart: RRR Respiratory: no wheezes, no ronchi Respiratory - other findings: fair air entry bilaterally with some transmitted sound. Gastrointestinal: soft, non-tender, non-distended, normal bowel sounds Extremities: no cyanosis, no edema Neurological: cranial nerve grossly intact, no focal deficits Musculoskeletal: generalized weakness Psychiatric: normal affect, A&O x 3 Hosp A/P (1) Septic shock Code(s): A41.9 - SEPSIS, UNSPECIFIED ORGANISM; R65.21 - SEVERE SEPSIS WITH SEPTIC SHOCK Status: Acute (2) Acute metabolic encephalopathy Code(s): G93.41 - METABOLIC ENCEPHALOPATHY Status: Acute (3) UTI (urinary tract infection) Status: Acute Qualifiers: Hematuria presence: without hematuria (4) Recurrent UTI Code(s): N39.0 - URINARY TRACT INFECTION, SITE NOT SPECIFIED Status: Acute (5) DM2 (diabetes mellitus, type 2) Status: Chronic Qualifiers: Diabetes mellitus complication status: without complication Qualified Code( s): E11.9 - Type 2 diabetes mellitus without complications (6) HTN (hypertension) Code(s): I10 - ESSENTIAL (PRIMARY) HYPERTENSION Status: Chronic Qualifiers: Hypertension type: essential hypertension Qualified Code(s): I10 - Essential (primary) hypertension (7) Hypokalemia Code(s): E87.6 - HYPOKALEMIA Status: Acute (8) Physical deconditioning Code(s): R53.81 - OTHER MALAISE Status: Acute (9) Hypophosphatemia Code(s): E83.39 - OTHER DISORDERS OF PHOSPHORUS METABOLISM Status: Acute - Plan Continue rocephin Replete serum potassium and phosphorus. PT eval and treat Continue insulin therapy. Anticipate discharge in a day or 2
[2018-11-27] MEDS ORDERED: Sodium Bicarbonate Tab 325 MG TAB PO SCH (12:30)
[2018-11-27] MEDS: Sodium Bicarbonate Tab 325 MG TAB PO SCH (19:51)
[2018-11-27] MEDS: Atorvastatin Calcium 10 MG TAB PO SCH (19:51)
[2018-11-27] MEDS: DULoxetine 60 MG CAP PO SCH (19:53)
[2018-11-27] MEDS: Aripiprazole 10 MG TAB PO SCH (19:53)
[2018-11-28 06:22] LABS: Albumin 4.1 g/dL (3.4-4.8); Anion Gap 15 mmol/L (10-20); BUN (Urea Nitrogen) 10 mg/dL (9.8-20.1); BUN/Creatinine Ratio 14.29; Calc. Creatinine Clearance 82 mL/min (70-130); Calcium 9.3 mg/dL (7.8-10.44); Carbon Dioxide 20 mmol/L (23-31); Chloride 109 mmol/L (98-107); Estimated GFR-MDRD 81; Glucose 123 mg/dL (83-110); Phosphorus 3.6 mg/dL (2.3-4.7); Potassium 3.8 mmol/L (3.5-5.1); Sodium 140 mmol/L (136-145)
[2018-11-28] MEDS: HumuLIN 70/30 (300 UNITS/3 ML VIAL) SC SCH (09:28)
[2018-11-28] MEDS: Bupropion 150 MG XL TAB PO SCH (09:29)
[2018-11-28] MEDS: cefTRIAXone\\ROCEPHIN 2 GM in Sodium Chloride 0.9% 100 ML IVPB SCH (09:30)
[2018-11-28] MEDS: Enoxaparin Sodium 40 MG/0.4 ML SYRINGE SC SCH (09:31)
[2018-11-28] MEDS: Sodium Bicarbonate Tab 325 MG TAB PO SCH (09:31)
[2018-11-28] MEDS: Docusate 100 MG CAP PO SCH ×2 (09:31→09:42)
[2018-11-28 10:57] VITALS: BP 134/69; TEMP 98
[2018-11-28] MEDS ORDERED: Bisacodyl 10 MG SUPP PR SCH (11:15)
--- NOTE | 2018-11-28 11:30 | PDOC.HOSPP ---
- Subjective Encounter Date: 11/28/18 Encounter Time: 11:29 Subjective: No new problem. - Objective Vital Signs & Weight: Vital Signs (12 hours) Temp Pulse Resp BP Pulse Ox 11/28/18 10:51 98 F 91 18 134/69 93 L 11/28/18 07:19 98.2 F 94 18 136/73 90 L Weight Weight 170 lb Most Recent Monitor Data Heart Rate from ECG 99 NIBP 140/103 NIBP BP-Mean 115 Respiration from ECG 19 SpO2 97 I&O: 11/27/18 11/28/18 11/29/18 06:59 06:59 06:59 Intake Total 770 1370 Output Total 600 1300 Balance 170 70 Result Diagrams: 11/25/18 04:48 11/28/18 05:10 Additional Labs: Accuchecks 11/28/18 11/27/18 11/27/18 04:58 19:50 15:53 POC Glucose 110 130 H 136 H 11/27/18 11:40 POC Glucose 138 H Hospitalist ROS - Medication Medications: Active Medications Generic Name Dose Route Start Last Admin Trade Name Freq PRN Reason Stop Dose Admin Aripiprazole 10 mg 11/24/18 21:00 11/27/18 19:53 Abilify PO 10 mg HS BRIANNE Administration Atorvastatin Calcium 5 mg 11/24/18 21:00 11/27/18 19:51 Lipitor PO 5 mg HS BRIANNE Administration Bupropion HCl 300 mg 11/25/18 09:00 11/28/18 09:29 Wellbutrin Xl PO 300 mg QAM BRIANNE Administration Dextrose/Water 25 gm 11/24/18 13:16 11/24/18 20:49 Dextrose 50% SLOW IVP 25 gm PRN PRN Administration Hypoglycemia Docusate Sodium 200 mg 11/25/18 09:00 11/28/18 09:42 Colace PO Not Given DAILY BRIANNE Duloxetine HCl 120 mg 11/24/18 21:00 11/27/18 19:53 Cymbalta PO 120 mg HS BRIANNE Administration Enoxaparin Sodium 40 mg 11/25/18 09:00 11/28/18 09:31 Lovenox SC 40 mg 0900 BRIANNE Administration Ceftriaxone Sodium 2 gm/ 100 mls @ 200 mls/hr 11/26/18 09:00 11/28/18 09:30 Sodium Chloride IVPB 100 mls 0900 BRIANNE Administration Insulin Human Isoph/Insulin Regular 20 units 11/24/18 16:30 11/28/18 09:28 Humulin 70/30 SC 20 unit BID-AC BRIANNE Administration Pantoprazole Sodium 40 mg 11/25/18 09:00 11/28/18 09:32 Protonix PO 40 mg DAILY BRIANNE Administration Sodium Bicarbonate 650 mg 11/27/18 21:00 11/28/18 09:31 Bicarbonate, Sodium PO 650 mg BID BRIANNE Administration Hosp A/P (1) Septic shock Code(s): A41.9 - SEPSIS, UNSPECIFIED ORGANISM; R65.21 - SEVERE SEPSIS WITH SEPTIC SHOCK Status: Acute (2) Acute metabolic encephalopathy Code(s): G93.41 - METABOLIC ENCEPHALOPATHY Status: Acute (3) UTI (urinary tract infection) Status: Acute Qualifiers: Hematuria presence: without hematuria (4) Recurrent UTI Code(s): N39.0 - URINARY TRACT INFECTION, SITE NOT SPECIFIED Status: Acute (5) DM2 (diabetes mellitus, type 2) Status: Chronic Qualifiers: Diabetes mellitus complication status: without complication Qualified Code( s): E11.9 - Type 2 diabetes mellitus without complications (6) HTN (hypertension) Code(s): I10 - ESSENTIAL (PRIMARY) HYPERTENSION Status: Chronic Qualifiers: Hypertension type: essential hypertension Qualified Code(s): I10 - Essential (primary) hypertension (7) Hypokalemia Code(s): E87.6 - HYPOKALEMIA Status: Acute (8) Physical deconditioning Code(s): R53.81 - OTHER MALAISE Status: Acute (9) Hypophosphatemia Code(s): E83.39 - OTHER DISORDERS OF PHOSPHORUS METABOLISM Status: Acute - Plan Discharged on omnicef. #[id number]
--- NOTE | 2018-11-28 11:53 | DIS ---
DATE OF ADMISSION: 11/24/2018 DATE OF DISCHARGE: 11/28/2018 PRIMARY CARE PHYSICIAN: Rosalio Hugo MD DISCHARGE DIAGNOSES: 1. Septic shock. 2. Acute metabolic encephalopathy. 3. Complicated urinary tract infection. 4. Recurrent urinary tract infection. 5. Type 2 diabetes mellitus. 6. Hypertension. 7. Hypotension, resolved. 8. Hypokalemia. 9. Hypophosphatemia. 10. Physical deconditioning. 11. Obesity. 12. Depression with anxiety. CONSULT: Pulmonary and Critical Care. HOSPITAL COURSE: A 78-year-old female, halfway resident, with known history of hypertension, diabetes, recurrent UTI with recent septic shock due to UTI, now readmitted with acute mental status change. Further evaluation revealed features of urinary tract infection. The patient also was found to have hypotension, which did not improve following fluid boluses, and the patient was subsequently started on Levophed with improvement. Levophed was later weaned off, and antibiotics were continued. Urine culture came back positive for Providencia stuartii, which was susceptible to ceftriaxone, cefepime, ceftazidime, but resistant to levofloxacin and Cipro. Antibiotics were subsequently transitioned to Rocephin in line with microsusceptibility test. Mental status improved, and the patient was back to baseline. She remained hemodynamically stable and was subsequently discharged. Review of home medication showed the patient is on Invokana, which predisposes both serious and common urinary tract infection; hence, this was discontinued at discharge. Of note, also we will defer the patient who was on antihypertensives, which were discontinued at discharge. The patient will follow with PCP for re-evaluation and possible recommencement of antihypertensives. PHYSICAL EXAMINATION: VITAL SIGNS: Temperature 98.0, pulse 91, respiratory rate 18, SpO2 of 93% on room air, blood pressure is 134/69. GENERAL: Comfortable, elderly female, in no distress. Afebrile. Anicteric. Acyanotic. HEENT: Normocephalic and atraumatic. Oral mucosa is moist. CARDIOVASCULAR: Regular rhythm and rate with normal heart sounds 1 and 2. RESPIRATORY: Good air entry bilaterally with few transmitted breath sounds. No obvious crackle or rhonchi was appreciated. GI: Full, soft, nontender, nondistended with normal bowel sounds. EXTREMITIES: Grossly normal looking, atraumatic with no edema or erythema. MARKETING OUTREACH COORDINATOR: Conscious, alert, and oriented x2. Some memory lapse is noted. Cranial nerves 2 through 12 are grossly intact. The patient moves all extremities. DISCHARGE DISPOSITION: [facility] facility. DISCHARGE CONDITION: Improved and stable. HOME MEDICATIONS: Please see discharge med rec. FOLLOWUP: Follow up with PCP in 3 days post-discharge. TIME SPENT: Discharge took more than 33 minutes. Job ID: [id number]
--- NOTE | 2018-11-28 12:29 | EKG ---
Test Reason : SEPSIS Blood Pressure : / mmHG Vent. Rate : 109 BPM Atrial Rate : 109 BPM P-R Int : 168 ms QRS Dur : 128 ms QT Int : 370 ms P-R-T Axes : 024 -66 046 degrees QTc Int : 498 ms Sinus tachycardia Left axis deviation Right bundle branch block --new Abnormal ECG Confirmed by MARSHA HENSON DO ([id number]), associate editor LIZZY MANDUJANO ([id number]) on 11/28/2018 12:29:01 PM Referred By: Confirmed By:MARSHA HENSON DO
== END 2018-11-28 12:18 | DRG 871 ==
LOC: ERS 08:33 → T4-A 12:18 → CCU 13:56 → T4-A 11-25 11:03
PROVIDERS: ADMIT Internal Medicine; ATTEND Internal Medicine
PROC: 3E033XZ Introduction of Vasopressor into Peripheral Vein, Percutaneous Approach (ICD-10-PCS; principal; 2018-11-24)
DX: A41.9 Sepsis, unspecified organism (principal); G93.41 Metabolic encephalopathy; R65.21 Severe sepsis with septic shock; N30.90 Cystitis, unspecified without hematuria; I10 Essential (primary) hypertension; E66.01 Morbid (severe) obesity due to excess calories; K59.09 Other constipation; E78.5 Hyperlipidemia, unspecified; F41.9 Anxiety disorder, unspecified; E11.319 Type 2 diabetes mellitus with unspecified diabetic retinopathy without macular edema; E86.9 Volume depletion, unspecified; E87.6 Hypokalemia; E83.39 Other disorders of phosphorus metabolism; F32.9 Major depressive disorder, single episode, unspecified; K21.9 Gastro-esophageal reflux disease without esophagitis; Z90.710 Acquired absence of both cervix and uterus; Z90.49 Acquired absence of other specified parts of digestive tract; Z79.4 Long term (current) use of insulin; Z79.899 Other long term (current) drug therapy; Z88.0 Allergy status to penicillin; Z88.1 Allergy status to other antibiotic agents; Z68.31 Body mass index [BMI] 31.0-31.9, adult; Z87.891 Personal history of nicotine dependence
CPT/HCPCS: 36415; 36416; 51701; 71045; 80048; 80053; 80069; 81003; 81015; 83605; 83690; 83735; 84484; 85025; 87040; 87077; 87086; 87186; 93005; 96365; 96366; 96368; J0696; J1650; J1815; J2185; J3370; J3490; J7050; J7070; P9047

== ENCOUNTER 2020-06-30 17:23 | Emergency (ER) | payer MEDICARE, OTHER ==
[2020-06-30 18:20] LABS: Bacteria/HPF 4+ HPF (None Seen); Bilirubin Negative (Negative); Blood, Urine 2+ (Negative); Clarity Turbid (Clear); Glucose, Urine (Dipstick) Normal (Negative); Ketone, Urine Negative (Negative); Leukocyte 500 Leu/uL (Negative); Nitrite Negative (Negative); Protein, Urine (Dipstick) 100 mg/dL (Neg-Trace); RBC/HPF 21-50 HPF (0-3); Specific Gravity, Urine 1.018 (1.002-1.036); Urobilinogen Normal mg/dL (Less than 2); WBC/HPF Greater than 50 HPF (0-3)
[2020-06-30] MEDS ORDERED: cefTRIAXone\\ROCEPHIN 1 GM VIAL ONE (19:18)
[2020-06-30] MEDS ORDERED: Nitrofurantoin Macrocrystal 50 MG CAP PO SCH (19:30)
[2020-06-30] MEDS ORDERED: cefTRIAXone\\ROCEPHIN 1 GM VIAL IM SCH (19:30)
== END 2020-06-30 20:58 | disposition home or self-care (01) ==
LOC: ERS 17:23
DX: S09.90XA Unspecified injury of head, initial encounter (principal); E11.9 Type 2 diabetes mellitus without complications; I10 Essential (primary) hypertension; E66.9 Obesity, unspecified; E11.319 Type 2 diabetes mellitus with unspecified diabetic retinopathy without macular edema; K21.9 Gastro-esophageal reflux disease without esophagitis; W05.0XXA Fall from non-moving wheelchair, initial encounter
CPT/HCPCS: 51701; 70450; 72125; 72170; 81003; 81015; 87077; 87086; 87186; 96365; J0696

== ENCOUNTER 2022-02-04 18:04 | Emergency (ER) | payer MEDICARE, BC, MEDICAID ==
[2022-02-04 19:41] LABS: #Basophils 0.1 thou/uL (0.0-0.2); #Eosinphils 0.4 thou/uL (0.0-0.7); #Lymphocytes 4.6 thou/uL (1.20-3.40); #Monocytes 0.8 thou/uL (0.11-0.59); #Neutrophils 3.7 thou/uL (1.40-6.50); %Basophils 0.9 % (0.0-1.0); %Eosinophils 4.3 % (0.0-10.0); %Lymphocytes 47.7 % (21.0-51.0); %Monocytes 8.7 % (0.0-10.0); %Neutrophils 38.5 % (42.0-75.0); Hemoglobin 13.9 g/dL (12.0-16.0); Mean Corpuscular Hemoglobin 31.9 pg (27.0-31.0); Mean Corpuscular Volume 99.7 fl (78.0-98.0); Mean Platelet Volume 8.4 fL (7.4-10.4); Platelet Count 206 10x3/uL (130-400); RBC Distribution Width 14.1 % (11.5-14.5); Red Blood Cell (RBC) Count 4.36 mill/uL (4.20-5.40); White Blood Cell (WBC) Count 9.7 10x3/uL (4.8-10.8)
[2022-02-04 20:03] LABS: ALT (SGPT) 8 U/L (8-55); AST (SGOT) 11 U/L (5-34); Alkaline Phosphatase 82 U/L (40-110); Anion Gap 15 mmol/L (10-20); BUN (Urea Nitrogen) 18 mg/dL (9.8-20.1); Bilirubin, Total 0.3 mg/dL (0.2-1.2); Calc. Creatinine Clearance 0 mL/min (70-130); Calcium 9.4 mg/dL (7.8-10.44); Carbon Dioxide 22 mmol/L (23-31); Chloride 107 mmol/L (98-107); Estimated GFR 84; Globulin 3.1 g/dL (2.4-3.5); Glucose 89 mg/dL (83-110); Potassium 4.4 mmol/L (3.5-5.1); Protein, Total 7.1 g/dL (5.8-8.1); Sodium 140 mmol/L (136-145)
[2022-02-04 21:11] LABS: Bilirubin Negative (Negative); Blood, Urine 1+ (Negative); Clarity Turbid (Clear); Glucose, Urine (Dipstick) Normal (Negative); Ketone, Urine Negative (Negative); Leukocyte 500 Leu/uL (Negative); Nitrite 2+ (Negative); Protein, Urine (Dipstick) 30 mg/dL (Neg-Trace); Specific Gravity, Urine 1.015 (1.002-1.036); Urobilinogen Normal mg/dL (Less than 2)
[2022-02-04 21:13] LABS: Bacteria/HPF 3+ HPF (None Seen); Squamous Epithelial 0-3 HPF (0-3)
[2022-02-04] MEDS ORDERED: cefTRIAXone\\ROCEPHIN 1 GM VIAL ONE (21:16)
[2022-02-04 22:34] LABS: Lactic Acid 1.4 mmol/L (0.5-2.2)
== END 2022-02-04 23:05 | disposition home or self-care (01) ==
LOC: ERS 18:04
DX: N39.0 Urinary tract infection, site not specified (principal); E11.319 Type 2 diabetes mellitus with unspecified diabetic retinopathy without macular edema; I10 Essential (primary) hypertension; E66.9 Obesity, unspecified; E78.00 Pure hypercholesterolemia, unspecified; K21.9 Gastro-esophageal reflux disease without esophagitis; Z79.899 Other long term (current) drug therapy
CPT/HCPCS: 36415; 51701; 80053; 81003; 81015; 83605; 85025; 96374; J0696

== ENCOUNTER 2022-04-23 15:57 | Emergency (ER) | payer MEDICARE, MEDICAID ==
[~2022-04-23 15:57] MED LIST: Iopamidol-370 76% 500 ML 1 ML ONE
[2022-04-23 17:28] LABS: #Basophils 0.1 thou/uL (0.0-0.2); #Eosinphils 0.3 thou/uL (0.0-0.7); #Lymphocytes 4.3 thou/uL (1.20-3.40); #Monocytes 0.9 thou/uL (0.11-0.59); #Neutrophils 4.9 thou/uL (1.40-6.50); %Basophils 0.9 % (0.0-1.0); %Eosinophils 2.7 % (0.0-10.0); %Lymphocytes 40.8 % (21.0-51.0); %Monocytes 8.6 % (0.0-10.0); %Neutrophils 46.9 % (42.0-75.0); Hemoglobin 14.1 g/dL (12.0-16.0); Mean Corpuscular HGB CONC 32.9 g/dL (32.0-36.0); Mean Corpuscular Hemoglobin 32.3 pg (27.0-31.0); Mean Corpuscular Volume 98.1 fl (78.0-98.0); Mean Platelet Volume 7.9 fL (7.4-10.4); Platelet Count 235 10x3/uL (130-400); RBC Distribution Width 12.9 % (11.5-14.5); Red Blood Cell (RBC) Count 4.35 mill/uL (4.20-5.40); White Blood Cell (WBC) Count 10.5 10x3/uL (4.8-10.8)
[2022-04-23 17:51] LABS: ALT (SGPT) 8 U/L (8-55); AST (SGOT) 12 U/L (5-34); Albumin 4.3 g/dL (3.4-4.8); Alkaline Phosphatase 91 U/L (40-110); Anion Gap 14 mmol/L (10-20); BUN (Urea Nitrogen) 14 mg/dL (9.8-20.1); Bilirubin, Total 0.5 mg/dL (0.2-1.2); Calc. Creatinine Clearance 0 mL/min (70-130); Calcium 9.8 mg/dL (7.8-10.44); Carbon Dioxide 24 mmol/L (23-31); Chloride 105 mmol/L (98-107); Estimated GFR 87; Globulin 3.1 g/dL (2.4-3.5); Glucose 136 mg/dL (83-110); Potassium 4.1 mmol/L (3.5-5.1); Protein, Total 7.4 g/dL (5.8-8.1); Sodium 139 mmol/L (136-145)
[2022-04-23] MEDS ORDERED: Ketorolac Tromethamine 30 MG/ML VIAL ONE (19:36)
[2022-04-23 19:47] LABS: Bacteria/HPF 4+ HPF (None Seen); Bilirubin Negative (Negative); Blood, Urine 1+ (Negative); Clarity Extra Turbid (Clear); Glucose, Urine (Dipstick) Normal (Negative); Ketone, Urine Negative (Negative); Leukocyte 500 Leu/uL (Negative); Nitrite Negative (Negative); Protein, Urine (Dipstick) 50 mg/dL (Neg-Trace); Specific Gravity, Urine 1.044 (1.002-1.036); Urobilinogen Normal mg/dL (Less than 2); WBC/HPF Greater than 50 HPF (0-3); pH, Urine 7.5 (5.0-9.0)
== END 2022-04-23 22:57 ==
LOC: ERS 15:57
DX: N39.0 Urinary tract infection, site not specified (principal); K59.00 Constipation, unspecified; E11.319 Type 2 diabetes mellitus with unspecified diabetic retinopathy without macular edema; K21.9 Gastro-esophageal reflux disease without esophagitis; I10 Essential (primary) hypertension
CPT/HCPCS: 36415; 71045; 74177; 80053; 81003; 81015; 83880; 84484; 85025; 87077; 87086; 87186; 93005; 96372; J1885; Q9967